=== PATIENT | female | born 1975 | race Asian ===

== ENCOUNTER 2018-05-17 19:33 | Emergency (ER) | payer MEDICAID, OTHER ==
[2018-05-17 19:47] VITALS: BP 129/71
[2018-05-17] MEDS ORDERED: Ibuprofen TAB* 400 MG PO ONE (20:46)
[2018-05-17] MEDS ORDERED: Cyclobenzaprine TAB* 10 MG PO ONE (20:46)
--- NOTE | 2018-05-17 20:55 | UC ---
Elbow Pain - HPI Summary HPI Summary: 43 y/o female presents to the urgent care c/o Pt reports that she has swelling and pain along her right side, including her arm, armpit, shoulder and back for the last three days. Three weeks ago she fell on her right arm/elbow. - History of Current Complaint Chief Complaint: UCGeneralIllness Stated Complaint: SWELLING IN ARM Time Seen by Provider: 05/17/18 20:30 Hx Last Menstrual Period: [id number] Pain Intensity: 6 - Allergies/Home Medications Allergies/Adverse Reactions: Allergies Allergy/AdvReac Type Severity Reaction Status Date / Time No Known Allergies Allergy Verified 05/17/18 19:47 Home Medications: Home Medications Multivitamins/Minerals TAB* [Theragran/minerals TAB*] 1 tab PO DAILY 05/17/18 [ History Confirmed 05/17/18] PMH/Surg Hx/FS Hx/Imm Hx - Surgical History Surgical History: None - Social History Alcohol Use: None Substance Use Type: None Smoking Status (MU): Never Smoked Tobacco - Immunization History Most Recent Influenza Vaccination: 2014 Most Recent Tetanus Shot: 2015 Most Recent Pneumonia Vaccination: never Physical Exam Vital Signs: Initial Vital Signs Temp 98.3 F 05/17/18 19:39 Pulse 80 05/17/18 19:39 Resp 16 05/17/18 19:39 BP 129/71 05/17/18 19:39 Pulse Ox 100 05/17/18 19:39 Elbow Pain Course/Dx - Differential Dx/Diagnosis Differential Diagnosis/HQI/PQRI: Cellulitis, Fracture (Closed), Infection, Sprain, Strain, Tendonitis Provider Diagnoses: 1- Rt elbow pain. 2- RT elbow tendonitis. 3- Muscle spasm Discharge - Discharge Plan Condition: Stable Disposition: HOME Prescriptions: Cyclobenzaprine TAB* [Flexeril 10 MG TAB*] 10 mg PO TID PRN #20 tab PRN Reason: Spasms - Muscle Ibuprofen TAB* [Motrin TAB* 800 MG] 800 mg PO Q6H PRN #30 tab PRN Reason: Pain Patient Education Materials: Tennis Elbow (ED), Muscle Spasm (ED) Forms: *Work Release Referrals: [facility] [Provider Group] - 3 Days Varun OIL MIXER,MARVIN Hernández [Primary Care Provider] - 3 Days Additional Instructions: 1-Please take medications as directed to alleviate pain and swelling. If flexeril makes you drwosy please do not take it while driving 2-Please apply ice, keep your shoulder immobilized with the shoulder sling and mari bandage for 3-4 days and then resume movement slowly 3- Please f/u with [facility] or Physical therapy in 3-4 days if not improvement of symptoms for further evaluation and treatment. - Billing Disposition and Condition Condition: STABLE Disposition: Home
== END 2018-05-17 21:00 | disposition home or self-care (01) ==
LOC: UCEAST 19:33
DX: M25.521 Pain in right elbow (principal); M77.9 Enthesopathy, unspecified; M62.838 Other muscle spasm
CPT/HCPCS: 99213; A9270-GY; G0463

== ENCOUNTER 2018-07-04 20:21 | Emergency (ER) | payer OTHER ==
[2018-07-04 20:32] VITALS: BP 122/83
[2018-07-04] MEDS ORDERED: Tetan/Diph/Pertus SYR(Tdap)* 0.5 ML SYR(BOOSTRIX) use SYR IM ONE (20:52)
--- NOTE | 2018-07-04 20:55 | UC ---
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 STRUCK RIGHT FACE/HEAD ON PAVEMENT. STATES POSITIVE LOC 5-6 SEC. STATES NO ADULT WITNESSES. WAS WITH 2 YEAR OLD CHILD. REPORTS BILATERAL KNEE PAIN AND ABRASIONS WELL NECK PAIN. FEELS OUT OF IT. DENIES NAUSEA OR VISUAL DISTURBANCE. - History of Current Complaint Chief Complaint: UCHeadInjury Stated Complaint: FACE INJURY Time Seen by Provider: 07/04/18 20:35 Hx Obtained From: Patient Hx Last Menstrual Period: 06/28/18 Onset/Duration: Sudden Onset, Lasting Hours, Still Present Onset Of Pain: Immediate Severity Initially: Moderate Severity Currently: Moderate Pain Intensity: 8 Pain Scale Used: 0-10 Numeric Mechanism Of Injury: Blunt Trauma, Fall From A Standing Position Aggravating Factor(s): Movement Alleviating Factor(s): Nothing Associated Signs And Symptoms: Positive: Loss Of Consciousness, Ecchymosis, Swelling - Allergies/Home Medications Allergies/Adverse Reactions: Allergies Allergy/AdvReac Type Severity Reaction Status Date / Time No Known Allergies Allergy Verified 07/04/18 20:32 PMH/Surg Hx/FS Hx/Imm Hx Previously Healthy: Yes - Surgical History Surgical History: None - Family History Known Family History: Positive: Hypertension, Diabetes - Social History Alcohol Use: None Substance Use Type: None Smoking Status (MU): Never Smoked Tobacco - Immunization History Most Recent Influenza Vaccination: 2014 Most Recent Tetanus Shot: 2016 Most Recent Pneumonia Vaccination: never Review of Systems Constitutional: Fatigue, Other - SLEEPY, DAZED Skin: Bruising, Other - FACIAL ABRASIONS Eyes: Negative Respiratory: Negative Cardiovascular: Negative Gastrointestinal: Negative Musculoskeletal: Arthralgia, Decreased ROM, Edema All Other Systems Reviewed And Are Negative: Yes Physical Exam Triage Information Reviewed: Yes Appearance: No Pain Distress, Well-Nourished, Ill-Appearing - PT APPEARS DAZED AND SLEEPY Vital Signs: Initial Vital Signs Temp 97.9 F 07/04/18 20:28 Pulse 68 07/04/18 20:28 Resp 16 07/04/18 20:28 BP 122/83 07/04/18 20:28 Pulse Ox 100 07/04/18 20:28 Vital Signs Reviewed: Yes Eyes: Positive: Conjunctiva Clear ENT: Positive: Hearing grossly normal, TMs normal - NO HEMOTYMPANUM Neck: Positive: Tenderness @ - C-SPINE Respiratory: Positive: No respiratory distress, No accessory muscle use Cardiovascular: Positive: Pulses Normal Abdomen Description: Positive: Soft Musculoskeletal: Positive: No Edema Neurological: Positive: Fatigued - DAZED, SLEEPY, Other: - CN II-XII GROSSLY INTACT BILATERALLY. 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 [employer] 15 Skin: Negative: rashes Minor Trauma Course/Dx - Course Course Of Treatment: PT IS ORIENTED AND APPROPRIATE BUT SEEMS DAZED AND FATIGUED. [place] PLACED. TO [facility] ED BY AMBULANCE - Differential Dx/Diagnosis Provider Diagnoses: 1. FACIAL/HEAD TRAUMA. 2. CERVICAL PAIN. 3. BILATERAL KNEE PAIN. 4. TDAP BOOSTER - Physician Notifications Discussed Patient Care With: Ad Mccoy - TO [facility] ED BY KYLEE Time Discussed With Above Provider: 20:50 Instructed by Provider To: MD Will See In ED Discharge - Sign-Out/Discharge Documenting (check all that apply): Patient Departure All imaging exams completed and their final reports reviewed: No Studies - Discharge Plan Condition: Guarded Disposition: TRANS HIGHER LVL OF CARE FAC Referrals: Varun WONG,MARVIN Hernández [Primary Care Provider] - - Billing Disposition and Condition Condition: GUARDED Disposition: Trans Higher Lvl of Care Fac
== END 2018-07-04 21:11 | disposition short-term general hospital (02) ==
LOC: UCEAST 20:21
DX: S09.93XA Unspecified injury of face, initial encounter (principal); S00.81XA Abrasion of other part of head, initial encounter; W01.0XXA Fall on same level from slipping, tripping and stumbling without subsequent striking against object, initial encounter; Y93.9 Activity, unspecified; Y92.9 Unspecified place or not applicable; Z23 Encounter for immunization; M54.2 Cervicalgia; M25.562 Pain in left knee; M25.561 Pain in right knee
CPT/HCPCS: 90471; 90715; 99213; G0463

== ENCOUNTER 2018-07-04 21:23 | Emergency (ER) | payer OTHER ==
--- NOTE | 2018-07-04 23:19 | RAD ---
EXAM: CT Head Without Intravenous Contrast CLINICAL HISTORY: 43 years old, female; Pain and injury or trauma; Fall; Additional info: Fall, head injury TECHNIQUE: Axial computed tomography images of the head/brain without intravenous contrast. All CT scans at this facility use at least one of these dose optimization techniques: automated exposure control; mA and/or kV adjustment per patient size (includes targeted exams where dose is matched to clinical indication); or iterative reconstruction. COMPARISON: No relevant prior studies available. FINDINGS: Brain: Unremarkable. No hemorrhage. No significant white matter disease. No edema. Ventricles: Unremarkable. No ventriculomegaly. Bones/joints: Unremarkable. No acute fracture. Soft tissues: Unremarkable. Sinuses: Unremarkable as visualized. No acute sinusitis. Mastoid air cells: Unremarkable as visualized. No mastoid effusion. IMPRESSION: 1. No acute intracranial abnormality.
--- NOTE | 2018-07-04 23:25 | RAD ---
EXAM: CT Maxillofacial Without Intravenous Contrast CLINICAL HISTORY: 43 years old, female; Injury or trauma; Fall; Initial encounter; Blunt trauma (contusions or hematomas); Cheek bone; Left TECHNIQUE: Axial computed tomography images of the face without intravenous contrast. All CT scans at this facility use at least one of these dose optimization techniques: automated exposure control; mA and/or kV adjustment per patient size (includes targeted exams where dose is matched to clinical indication); or iterative reconstruction. Coronal and sagittal reformatted images were created and reviewed. COMPARISON: No relevant prior studies available. FINDINGS: Bones/joints: No acute fracture. Soft tissues: Unremarkable. Orbits: Unremarkable. Sinuses: Unremarkable. No air-fluid levels. IMPRESSION: 1. No acute findings.
[2018-07-04] MEDS ORDERED: HYDROcodone/ACETAMIN 5-325 MG* 1 TAB PO ONE (23:52)
[2018-07-04] MEDS ORDERED: Ibuprofen TAB* 600 MG PO ONE (23:55)
--- NOTE | 2018-07-04 23:56 | ED ---
Head Injury - HPI Summary HPI Summary: Patient sent by CC to ED complains of mechanical fall today and landing on her face on pavement with positive LOC, subsequent dizziness, GREER, blurred vision, slow speech, hematoma to right side head and face, and right knee pain. She ambulated home after fall which is a 5 minute walk. Patient states she has improved and here in ED denies blurred vision, dizziness, N/V, neck pain, back pain, oral trauma. No anti-coag. - History Of Current Complaint Chief Complaint: EDFacialInjury Stated Complaint: FACE INJURY Time Seen by Provider: 07/04/18 21:42 Hx Obtained From: Patient Hx Last Menstrual Period: 06/28/18 Mechanism Of Injury: Fall From A Standing Position Onset/Duration: Started Hours Ago Onset of Pain: Immediate Severity Currently: Moderate Severity Initially: Moderate Pain Intensity: 8 Pain Scale Used: 0-10 Numeric Location of Head Injury: Parietal Character: Throbbing Associated Signs And Symptoms: LOC (Time In Secs./Mins/Hrs), Headache, Visual Changes - Allergies/Home Medications Allergies/Adverse Reactions: Allergies Allergy/AdvReac Type Severity Reaction Status Date / Time No Known Allergies Allergy Verified 07/04/18 20:32 PMH/Surg Hx/FS Hx/Imm Hx Endocrine/Hematology History: Denies: Hx Anticoagulant Therapy, Hx Diabetes Infectious Disease History: No Infectious Disease History: Denies: Traveled Outside the [place] in Last 30 Days - Family History Known Family History: Positive: Hypertension, Diabetes - Social History Alcohol Use: None Substance Use Type: Reports: None Smoking Status (MU): Never Smoked Tobacco Review of Systems Constitutional: Negative Positive: Blurred Vision ENT: Negative Cardiovascular: Negative Respiratory: Negative Gastrointestinal: Negative Genitourinary: Negative Musculoskeletal: Negative Skin: Other Positive: Bruising Positive: Headache Psychological: Normal All Other Systems Reviewed And Are Negative: Yes Physical Exam - Summary Physical Exam Summary: Patient alert and oriented. Neuro exam normal. Hematoma to right cheek, right- sided forehead. No oral trauma noted. Full range of motion of jaw. Full range of motion of neck without pain. Full range of motion of bilateral upper and lower extremities. Pain with flexion of right knee. No pain with palpation of chest or abdomen, neck or back. Triage Information Reviewed: Yes Vital Signs On Initial Exam: Initial Vitals Pulse BP Pulse Ox 66 131/77 99 07/04/18 21:46 07/04/18 21:46 07/04/18 21:46 Vital Signs Reviewed: Yes Appearance: Positive: Well-Appearing Skin: Positive: Warm Head/Face: Positive: Normal Head/Face Inspection Eyes: Positive: Normal Neck: Positive: Supple Respiratory/Lung Sounds: Positive: Clear to Auscultation Cardiovascular: Positive: Normal Abdomen Description: Positive: Nontender Musculoskeletal: Positive: Normal Neurological: Positive: Normal Psychiatric: Positive: Normal AVPU Assessment: Alert - Opal Coma Scale Best Eye Response: 4 - Spontaneous Best Motor Response: 6 - Obeys Commands Best Verbal Response: 5 - Oriented Coma Scale Total: 15 Diagnostics - Vital Signs Vital Signs Temp Pulse Resp BP Pulse Ox 07/04/18 22:46 63 13 111/72 98 07/04/18 22:00 65 10 100 07/04/18 21:54 97.9 F 66 16 131/77 99 07/04/18 21:48 61 13 100 07/04/18 21:46 66 131/77 99 - Laboratory Lab Statement: Any lab studies that have been ordered have been reviewed, and results considered in the medical decision making process. Head Injury Course/Dx Course Of Treatment: Patient sent by CC to ED complains of mechanical fall today and landing on her face on pavement with positive LOC, subsequent dizziness, GREER, blurred vision, slow speech, hematoma to right side head and face, and right knee pain. She ambulated home after fall which is a 5 minute walk. Patient states she has improved and here in ED denies blurred vision, dizziness, N/V, neck pain, back pain, oral trauma. No anti-coag. Physical exam :Patient alert and oriented. Neuro exam normal. Hematoma to right cheek, right -sided forehead. No oral trauma noted. Full range of motion of jaw. Full range of motion of neck without pain. Full range of motion of bilateral upper and lower extremities. Pain with flexion of right knee. No pain with palpation of chest or abdomen, neck or back. Vital signs within normal limits. CT brain and maxillofacial negative. Abrasion to right knee, no x-ray indicated. Ibuprofen for pain. - Diagnoses Provider Diagnoses: Head injury Discharge - Sign-Out/Discharge Documenting (check all that apply): Patient Departure - Discharge Plan Condition: Stable Disposition: HOME Patient Education Materials: Concussion (ED), Head Injury (ED) Referrals: Varun WONG,MARVIN Hernández [Primary Care Provider] - Additional Instructions: Take ibuprofen for pain. Return to the ED for any new or worsening symptoms - Billing Disposition and Condition Condition: STABLE Disposition: Home
[2018-07-05 00:09] VITALS: BP 106/73
== END 2018-07-05 00:05 | disposition home or self-care (01) ==
LOC: ED 21:23
DX: S09.90XA Unspecified injury of head, initial encounter (principal); R51 Headache; R55 Syncope and collapse; W19.XXXA Unspecified fall, initial encounter; Y92.9 Unspecified place or not applicable
CPT/HCPCS: 70450; 70486; 99283; A9270-GY

== ENCOUNTER 2018-07-21 14:47 | Emergency (ER) | payer OTHER ==
[2018-07-21 15:02] VITALS: BP 109/66
--- NOTE | 2018-07-21 16:29 | UC ---
Throat Pain/Nasal Juan Carlos HPI - HPI Summary HPI Summary: 43 yo female c/o Swollen tonsils and non productive cough x 2 days, denies any fever or chills , denies any contact with strept throat. Denies runny nose. Denies dysphagia, has been drinking fluids without any problems - History of Current Complaint Chief Complaint: UCRespiratory Stated Complaint: COUGH,SORE THROAT Time Seen by Provider: 07/21/18 16:03 Hx Obtained From: Patient Hx Last Menstrual Period: currently ?: No Onset/Duration: Sudden Onset, Lasting Days Severity: Severe Pain Intensity: 9 Cough: Nonproductive Associated Signs & Symptoms: Positive: Negative - Epiglottits Risk Factors Epiglottis Risk Factors: Negative - Allergies/Home Medications Allergies/Adverse Reactions: Allergies Allergy/AdvReac Type Severity Reaction Status Date / Time No Known Allergies Allergy Verified 07/21/18 14:57 Home Medications: Home Medications Acetaminophen [Tylenol Extra Strength] 500 mg PO Q12HR PRN 07/21/18 [History Confirmed 07/21/18] PMH/Surg Hx/FS Hx/Imm Hx Previously Healthy: Yes Other History Of: Negative For: Anticoagulant Therapy - Surgical History Surgical History: None - Family History Known Family History: Positive: Hypertension, Diabetes - Social History Alcohol Use: None Substance Use Type: None Smoking Status (MU): Never Smoked Tobacco - Immunization History Most Recent Influenza Vaccination: 2014 Most Recent Tetanus Shot: 2016 Most Recent Pneumonia Vaccination: never Review of Systems Constitutional: Negative ENT: Sore Throat Respiratory: Cough All Other Systems Reviewed And Are Negative: Yes Physical Exam - Summary Physical Exam Summary: tnsillar hypertrophy without exudates or erythema Triage Information Reviewed: Yes Appearance: Well-Appearing, No Pain Distress, Well-Nourished Vital Signs: Initial Vital Signs Temp 98.3 F 07/21/18 14:56 Pulse 64 07/21/18 14:56 Resp 18 07/21/18 14:56 BP 109/66 07/21/18 14:56 Pulse Ox 98 07/21/18 14:56 Eyes: Positive: Conjunctiva Clear ENT: Positive: Hearing grossly normal, Pharynx normal, TMs normal Neck: Positive: Supple, Nontender, No Lymphadenopathy Respiratory: Positive: Chest non-tender, Lungs clear, Normal breath sounds, No respiratory distress Cardiovascular: Positive: RRR, No Murmur, Pulses Normal, Brisk Capillary Refill Abdomen Description: Positive: Nontender Bowel Sounds: Positive: Present Throat Pain/Nasal Course/Dx - Course Course Of Treatment: rapid strep was negative, patient was instructed to continue with fluids, ibuprofen if needed and saline gargles. f.u with PCP - Differential Dx/Diagnosis Provider Diagnoses: pharyngitis Discharge - Sign-Out/Discharge Documenting (check all that apply): Patient Departure All imaging exams completed and their final reports reviewed: No Studies - Discharge Plan Condition: Stable Disposition: HOME Patient Education Materials: Pharyngitis (ED) Referrals: Varun WONG,MARVIN Hernández [Primary Care Provider] - - Billing Disposition and Condition Condition: STABLE Disposition: Home
== END 2018-07-21 16:30 | disposition home or self-care (01) ==
LOC: UCEAST 14:47
DX: J02.9 Acute pharyngitis, unspecified (principal)
CPT/HCPCS: 87651; 99212; G0463

== ENCOUNTER 2018-12-22 19:50 | Emergency (ER) | payer OTHER ==
[2018-12-22 20:32] VITALS: BP 113/67
[2018-12-22] MEDS ORDERED: Hydrocortisone 1% CREAM* 30 GM TUBE TOPICAL ONE (21:34)
--- NOTE | 2018-12-22 21:46 | UC ---
Skin Complaint HPI - HPI Summary HPI Summary: ONSET YESTERDAY OF ITCHY, RED RASH ON BOTH HER CHEEKS. DENIES ANY NEW SOAPS, LOTIONS, DETERGENTS OR FOODS. NO DIFFICULTY BREATHING OR SWELLING OF THE TONGUE OR LIPS. NO PREVIOUS SIMILAR EPISODES. - History of Current Complaint Chief Complaint: UCRash Time Seen by Provider: 12/22/18 21:15 Stated Complaint: RASH Hx Obtained From: Patient Hx Last Menstrual Period: [id number] Onset/Duration: Gradual Onset, Lasting Days - 1 DAY, Still Present Timing: Constant Onset Severity: Moderate Current Severity: Moderate Pain Intensity: 0 Pain Scale Used: 0-10 Numeric Location: Discrete - BOTH CHEEKS Character: Pruritus, Redness Aggravating Factor(s): Touch Alleviating Factor(s): Nothing Associated Signs & Symptoms: Positive: Rash. Negative: Nausea, Vomiting, Fever , Chills, Drainage, Red Streaks - Allergy/Home Medications Allergies/Adverse Reactions: Allergies Allergy/AdvReac Type Severity Reaction Status Date / Time No Known Allergies Allergy Verified 12/22/18 20:32 Home Medications: Home Medications Multivitamin [Multivitamins] 1 cap PO DAILY 12/22/18 [History Confirmed 12/22/18 ] PMH/Surg Hx/FS Hx/Imm Hx Previously Healthy: Yes Other History Of: Negative For: Anticoagulant Therapy - Surgical History Surgical History: None - Family History Known Family History: Positive: Hypertension, Diabetes - Social History Alcohol Use: None Substance Use Type: None Smoking Status (MU): Never Smoked Tobacco - Immunization History Most Recent Influenza Vaccination: 2014 Most Recent Tetanus Shot: 2016 Most Recent Pneumonia Vaccination: never Review of Systems All Other Systems Reviewed And Are Negative: Yes Constitutional: Positive: Negative Skin: Positive: Rash Respiratory: Positive: Negative Cardiovascular: Positive: Negative Gastrointestinal: Positive: Negative Physical Exam Triage Information Reviewed: Yes Appearance: Well-Appearing, No Pain Distress, Well-Nourished Vital Signs: Initial Vital Signs Temp 98.8 F 12/22/18 20:27 Pulse 77 12/22/18 20:27 Resp 16 12/22/18 20:27 BP 113/67 12/22/18 20:27 Pulse Ox 100 12/22/18 20:27 Vital Signs Reviewed: Yes Eyes: Positive: Conjunctiva Clear ENT: Positive: Hearing grossly normal Neck: Positive: Supple Respiratory: Positive: No respiratory distress, No accessory muscle use Cardiovascular: Positive: Pulses Normal Abdomen Description: Positive: Soft Musculoskeletal: Positive: No Edema Neurological: Positive: Alert Psychological: Positive: Age Appropriate Behavior Skin: Positive: Rashes - ERYTHEMATOUS, CONFLUENT RAISED RASH OVER BOTH CHEEKS. NO DRAINAGE Course/Dx - Diagnoses Provider Diagnosis: Contact dermatitis Discharge - Sign-Out/Discharge Documenting (check all that apply): Patient Departure All imaging exams completed and their final reports reviewed: No Studies - Discharge Plan Condition: Stable Disposition: HOME Prescriptions: LoraTADine TAB(NF) [Claritin 10 MG TAB(NF)] 10 mg PO DAILY #30 tab Patient Education Materials: Contact Dermatitis (ED) Referrals: Varun WONG,MARVIN Hernández [Primary Care Provider] - If Needed Additional Instructions: YOUR RASH APPEARS CONSISTENT WITH A CONTACT DERMATITIS. USE A HYPOALLERGENIC FACIAL CLEANSER TWICE DAILY. DO NOT SCRUB THE SKIN. AVOID HEAT AND HOT WATER THIS WILL CAUSE FURTHER INFLAMMATION AND IRRITATION. USE TOPICAL HYPOALLERGENIC MOISTURIZER AFTER CLEANSING. THEN APPLY TOPICAL STEROID CREAM. AVOID MUCOUS MEMBRANES. IF YOU DO NOT NOTICE SIGNIFICANT IMPROVEMENT OVER THE NEXT 1-2 WEEKS FOLLOW-UP WITH A [employer] ARCHITECT. IF YOU HAVE RECURRENT SYMPTOMS CONSIDER EVALUATION BY AN LACE WINDER. DERMATOLOGY IN [place] DR. HARLAN MCCLAIN [facility], [facility] [address]; [address] [place] [address] Dr. Madalyn Nunez Address: [facility] [facility] [address] [place] [address] DR. SALVADOR VALENZUELA [facility] [address] [facility] [address] [place] [address] [place] [address] Kimmy Stein DERMATOLOGY [place] DR. KISHORE RAJPUT [phone] [facility] Address: [address] , [place] [address] [facility] [address] [place] [address]., [address] [place], [place] [address] - Billing Disposition and Condition Condition: STABLE Disposition: Home
== END 2018-12-22 21:50 | disposition home or self-care (01) ==
LOC: UCEAST 19:50
DX: L25.9 Unspecified contact dermatitis, unspecified cause (principal)
CPT/HCPCS: 99212; A9270-GY; G0463

== ENCOUNTER 2019-05-17 19:02 | Emergency (ER) | payer OTHER ==
[2019-05-17 19:33] VITALS: BP 144/66
--- NOTE | 2019-05-17 19:58 | UC ---
Skin Complaint HPI - HPI Summary HPI Summary: 44-year-old woman comes in with a chief complaint of pain and swelling of her right fifth toe. Started October 2018 after wearing some shoes that were tight. The skin was very rough and parts of the fall off. Continues to give her pain with palpation and wearing shoes that are tight. - History of Current Complaint Chief Complaint: UCSkin Time Seen by Provider: 05/17/19 19:32 Stated Complaint: LITTLE TOE INJURY Hx Last Menstrual Period: 05/17/19 Pain Intensity: 6 - Allergy/Home Medications Allergies/Adverse Reactions: Allergies Allergy/AdvReac Type Severity Reaction Status Date / Time No Known Allergies Allergy Verified 05/17/19 19:32 Home Medications: Home Medications Ascorbic Acid [Vitamin C] 1 tab PO DAILY 05/17/19 [History Confirmed 05/17/19] Ascorbic Acid/Collagen Hydr [Collagen Plus Vit C Capsule] 1 tab PO DAILY [History Confirmed 05/17/19] Glutathione 500 mg PO DAILY 05/17/19 [History Confirmed 05/17/19] PMH/Surg Hx/FS Hx/Imm Hx Previously Healthy: Yes Other History Of: Negative For: Anticoagulant Therapy - Surgical History Surgical History: None - Family History Known Family History: Positive: Hypertension, Diabetes - Social History Alcohol Use: None Substance Use Type: None Smoking Status (MU): Never Smoked Tobacco - Immunization History Most Recent Influenza Vaccination: 2014 Most Recent Tetanus Shot: 2015 Most Recent Pneumonia Vaccination: never Review of Systems All Other Systems Reviewed And Are Negative: Yes Constitutional: Positive: Negative Skin: Positive: Other - SEE HPI Eyes: Positive: Negative ENT: Positive: Negative Respiratory: Positive: Negative Cardiovascular: Positive: Negative Gastrointestinal: Positive: Negative Motor: Positive: Negative Neurovascular: Positive: Negative Musculoskeletal: Positive: Negative Neurological: Positive: Negative Psychological: Positive: Negative Is Patient Immunocompromised?: No Physical Exam Triage Information Reviewed: Yes Appearance: Well-Appearing, No Pain Distress, Well-Nourished Vital Signs: Initial Vital Signs Temp 97.6 F 05/17/19 19:25 Pulse 68 05/17/19 19:25 Resp 18 05/17/19 19:25 BP 144/66 05/17/19 19:25 Pulse Ox 99 05/17/19 19:25 Vital Signs Reviewed: Yes Eye Exam: Normal Eyes: Positive: Conjunctiva Clear Neck: Positive: Supple Respiratory: Positive: No respiratory distress Musculoskeletal: Positive: Strength Intact, ROM Intact Neurological: Positive: Alert Psychological: Positive: Age Appropriate Behavior Skin: Positive: Other - On the lateral aspect of the distal right fifth toe there is a 1 cm raised rough skin lesion which is most consistent with a wart. It is not pigmented. There is a villous component to it. Is mildly tender to palpation. No drainage no erythema no streaking. Skin has normal capillary refill and normal sensation. Course/Dx - Course Course Of Treatment: The lesion is most consistent with a wart. Calluses another possibility. It is not pigmented. Plan is to treat with [id number] work treatments and follow-up podiatry. - Diagnoses Provider Diagnosis: Warts of foot Discharge - Sign-Out/Discharge Documenting (check all that apply): Patient Departure All imaging exams completed and their final reports reviewed: No Studies - Discharge Plan Condition: Stable Disposition: HOME Patient Education Materials: Common Wart (ED) Referrals: Varun WONG,MARVIN Hernández [Primary Care Provider] - Alanis Araujo DPM [Doctor of Podiatric Medicine] - Pavan Ray DPM [Doctor of Podiatric Medicine] - Additional Instructions: USE OVER THE COUNTER WART REMOVAL KITS TO REMOVE THE GROWTH FROM YOUR RIGHT 5TH TOE. FOLLOW UP WITH PODIATRY IF NOT IMPROVING. GET RECHECKED SOONER IF YOU DO NOT IMPROVE OR YOUR CONDITION WORSENS OR ANY QUESTIONS OR CONCERNS. - Billing Disposition and Condition Condition: STABLE Disposition: Home
== END 2019-05-17 20:19 | disposition home or self-care (01) ==
LOC: UCEAST 19:02
DX: B07.9 Viral wart, unspecified (principal)
CPT/HCPCS: 99211; G0463